=== PATIENT | male | born 1985 | race Caucasian/White ===

== ENCOUNTER 2018-08-21 04:24 | Emergency (ER) | payer SELFPAY ==
[~2018-08-21] VITALS: Ht 160 cm; Wt 93.0 kg
--- NOTE | 2018-08-21 04:30 | NUR ---
PT TAKEN TO BED 4
[2018-08-21 04:36] VITALS: BP 156/82
[2018-08-21] MEDS ORDERED: ALBUTEROL SULFATE/IPRATROPIU 3 ML SOL IH ONE (04:45)
[2018-08-21] MEDS ORDERED: NACL 0.9% 1,000 ML IV ONE (04:45)
--- NOTE | 2018-08-21 04:51 | NUR ---
Respiratory Therapist at bedside for respiratory intervention.
--- NOTE | 2018-08-21 04:55 | NUR ---
RT AT BEDSIDE, PROVIDED BREATHING TREATMENT.
--- NOTE | 2018-08-21 04:55 | NUR ---
32 YEARS OLD MALE PRESENT TO ER WITH COUGH WITH CONGESTION X 1 DAY, FEELING SOB. AAO X 4. PATIENT REPORTED HE HAVE BEEN DRINKING 2 PACKS OF BEER EVERYDAY AND SLEEP AT OUTSIDE, STARTED SHAKING HIS HANDS AND DEVELOPED SOB. ALSO REPORTED VOMITING SEVERAL TIME WITH COUGH. DENIES CHEST PAIN. ABDOMINAL PAIN 6/10 WHEN COUGHING. NO HX OF MEDICAL PROBLEM. MD AWARE.
--- NOTE | 2018-08-21 05:01 | NUR ---
X RAY AT BEDSIDE.
[2018-08-21 05:16] LABS: ANION GAP 15.1 (8-16); CREATININE 0.8 mg/dL (0.7-1.3); POTASSIUM 4.1 mmol/L (3.5-5.1)
[2018-08-21 05:21] LABS: ALBUMIN 4.2 g/dL (3.4-5.0); TOTAL BILIRUBIN 0.4 mg/dL (0.0-1.0)
[2018-08-21 05:23] LABS: BASOPHILS # (AUTO) 0.1 K/uL (0.00-0.22); BASOPHILS % (AUTO) 0.5 % (0.0-2.0); EOSINOPHILS % (AUTO) 0.4 % (0.0-4.0); HEMATOCRIT 45.6 % (36-52); HEMOGLOBIN 15.1 g/dL (12.0-18.0); LYMPHOCYTES # (AUTO) 2.7 K/uL (2.0-11.5); LYMPHOCYTES % (AUTO) 23.3 % (20.5-51.1); MEAN CORPUSCULAR HEMOGLOBIN 29 pg (27-31); MEAN CORPUSCULAR HGB CONC 33 g/dL (33-37); MEAN CORPUSCULAR VOLUME 88.4 fL (80-94); MONOCYTES # (AUTO) 0.7 K/uL (0.8-1.0); NEUTROPHILS # (AUTO) 8.1 K/uL (1.8-7.7); NEUTROPHILS % (AUTO) 69.8 % (42.2-75.2); PLATELET COUNT (AUTO) 289 K/uL (140-450); RED BLOOD CELL COUNT(AUTO) 5.16 MIL/uL (4.20-6.10); RED CELL DISTRIBUTION WIDTH 13.3 % (11.6-13.7); WHITE BLOOD COUNT (AUTO) 11.5 K/uL (4.8-10.8)
[2018-08-21 06:08] VITALS: BP 140/76
--- NOTE | 2018-08-21 06:09 | NUR ---
Patient discharged with v/s stable. Written and verbal after care instructions given and explained. Patient alert, oriented and verbalized understanding of instructions. Ambulatory with steady gait. All questions addressed prior to discharge. ID band removed. Patient advised to follow up with PMD. Rx of INH ALBUTEROL 90MCG, XANAX 0.5MG given. Patient educated on indication of medication including possible reaction and side effects. Opportunity to ask questions provided and answered.
== END 2018-08-21 06:09 | disposition home or self-care (01) ==
LOC: MED 04:24
DX: J06.9 Acute upper respiratory infection, unspecified (principal); R03.0 Elevated blood-pressure reading, without diagnosis of hypertension
CPT/HCPCS: 36415; 71045; 80053; 85025; 87804; 94640; 94760; 99284; G0482; J7030; J7620